=== PATIENT | male | born 1980 | race Native Hawaiian/Other Pacific Islander ===

== ENCOUNTER 2022-01-17 12:18 | Outpatient (CLI) | payer OTHER, SELFPAY ==
[2022-01-17 15:11] LABS: Chloride* 100 mmol/L (96-114); Sodium* 137 mmol/L (135-149)
[2022-01-17 15:14] LABS: Blood Urea Nitrogen* 16 mg/dL (5-24); Carbon Dioxide* 28 mmol/L (20-32); Cholesterol* 140 mg/dL (90-199); Creatinine* 0.6 mg/dL (0.5-1.5); Estimated Glomerular Filt Rate 123 ml/min
[2022-01-17 15:15] LABS: Calcium* 9.6 mg/dL (8.4-10.6); Glucose* 277 mg/dL (60-115); HDL Cholesterol* 26 mg/dL (>=40); LDL Cholesterol Calculated 76 mg/dL (<100); Triglycerides* 190 mg/dL (40-149)
== END 2022-01-17 12:19 | disposition home or self-care (01) ==
PROVIDERS: PCP Family Medicine; Visit Provider Family Medicine
DX: E11.9 Type 2 diabetes mellitus without complications (principal); Z13.6 Encounter for screening for cardiovascular disorders
CPT/HCPCS: 80048; 80061

== ENCOUNTER 2024-03-26 12:43 | Outpatient (CLI) | payer OTHER, SELFPAY | END 2024-03-26 12:44 | disposition home or self-care (01) | PROVIDERS: PCP Family Medicine; Visit Provider Family Medicine | DX: R79.89 Other specified abnormal findings of blood chemistry (principal); E11.9 Type 2 diabetes mellitus without complications; N52.9 Male erectile dysfunction, unspecified | CPT/HCPCS: 80048; 80061; 82728; 84460; 85025 ==